=== PATIENT | male | born 1990 | race Caucasian/White ===

== ENCOUNTER 2017-06-18 07:37 | Outpatient (CLI) | payer OTHER ==
[~2017-06-18] VITALS: Ht 167.6 cm; Wt 71.8 kg
[2017-06-18] MEDS ORDERED: DESYREL 50MG50 MG PO (08:00)
[2017-06-18] MEDS ORDERED: WELLBUTRIN SR150 M1 PO (08:01)
[2017-06-18 08:15] VITALS: BP 135/91; PULSE 68; TEMP 97.5
[2017-06-18 09:35] VITALS: BP 139/94; PULSE 71; TEMP 97.9
== END 2017-06-18 09:41 | disposition home or self-care (01) ==
LOC: COL.CAR 07:37
DX: R55 Syncope and collapse (principal); Z87.891 Personal history of nicotine dependence; Z82.49 Family history of ischemic heart disease and other diseases of the circulatory system

== ENCOUNTER → 2017-06-23 | Outpatient (CLI) | payer OTHER ==
[~2017-06-23] MED LIST: DESYREL 50MG50 MG PO; WELLBUTRIN SR150 M1 PO
== END ==
LOC: COL.PUL 13:00
DX: R06.02 Shortness of breath (principal)
CPT/HCPCS: J7674